=== PATIENT | male | born 1990 | race Hispanic/Latino ===

== ENCOUNTER 2018-01-14 16:19 | Emergency (ER) | payer OTHER, SELFPAY ==
[2018-01-14] MEDS ORDERED: Adacel (T-DAP) 0.5 ML VIAL ONE (16:37)
[2018-01-14] MEDS ORDERED: Lidocaine 1% 20 ML MDV ONE (16:44)
== END 2018-01-14 17:30 | disposition home or self-care (01) ==
LOC: NAV ERS 16:19
DX: S61.411A Laceration without foreign body of right hand, initial encounter (principal); W26.0XXA Contact with knife, initial encounter
CPT/HCPCS: 12001; 90471; 90715; J2001

== ENCOUNTER 2018-01-29 18:12 | Emergency (ER) | payer SELFPAY ==
[2018-01-29] MEDS ORDERED: Ondansetron ODT 4 MG TAB ONE (18:30)
[2018-01-29] MEDS ORDERED: Ibuprofen 800 MG TAB ONE (19:04)
== END 2018-01-29 19:10 | disposition home or self-care (01) ==
LOC: NAV ERS 18:12
DX: K52.9 Noninfective gastroenteritis and colitis, unspecified (principal)
CPT/HCPCS: 99283; Q0162

== ENCOUNTER 2018-07-22 07:21 | Emergency (ER) | payer BC, SELFPAY ==
[2018-07-22] MEDS ORDERED: Lidocaine 1% (PF) 30 ML VIAL ONE (07:30)
--- NOTE | 2018-07-22 08:41 | RAD ---
RIGHT MIDDLE FINGER 3 VIEW: Date: 07/22/18 HISTORY: Laceration, pain. COMPARISON: None. FINDINGS: Sagittally oriented split fracture through the tuft of the distal phalanx of the middle finger. No ex tension into the distal interphalangeal joint. Minimal medial displacement. IMPRESSION: Minimal medial displacement of the sagittal oriented split fracture of the distal phalanx tuft of the middle finger. POS: [facility]AH
== END 2018-07-22 08:45 | disposition home or self-care (01) ==
LOC: NAV ERS 07:21
DX: S62.662A Nondisplaced fracture of distal phalanx of right middle finger, initial encounter for closed fracture (principal); S60.131A Contusion of right middle finger with damage to nail, initial encounter; W22.8XXA Striking against or struck by other objects, initial encounter
CPT/HCPCS: 64450; J2001